=== PATIENT | female | born 1990 | race Caucasian/White ===

== ENCOUNTER 2017-07-30 15:27 | Outpatient (CLI) | payer MEDICAID ==
[2017-07-30 16:16] LABS: APPEARANCE,URINE CLEAR; BILIRUBIN,URINE NEGATIVE (NEGATIVE); COLOR,URINE STRAW; GLUCOSE, URINE NEGATIVE (NEGATIVE); KETONES,URINE NEGATIVE (NEGATIVE); LEUKOCYTE ESTERASE,URINE NEGATIVE (NEGATIVE); NITRITE,URINE NEGATIVE (NEGATIVE); PROTEIN,URINE NEGATIVE (NEGATIVE); URINE SPECIFIC GRAVITY 1.006; UROBILINOGEN,URINE NEGATIVE mg/dL (<2.0)
[2017-07-30 16:18] LABS: EPITHELIALS (WET MOUNT) 3+ EPITHELIALS SEEN; T.VAGINALIS (WET MOUNT) NO TRICHOMONAS SEEN; WBCS (WET MOUNT) FEW WBCS SEEN; YEAST (WET MOUNT) NO YEAST SEEN
[2017-07-30 16:26] LABS: URINE AMPHETAMINES SCREEN NEGATIVE; URINE BARBITURATES SCREEN NEGATIVE; URINE BENZODIAZEPINES SCREEN NEGATIVE; URINE COCAINE SCREEN NEGATIVE; URINE MARIJUANA (THC) SCREEN NEGATIVE; URINE METHADONE SCREEN NEGATIVE; URINE PHENCYCLIDINE SCREEN NEGATIVE
[2017-07-30 17:38] LABS: CHLAM PCR NOT DETECTED (NOT DETECT); GON PCR NOT DETECTED (NOT DETECT)
== END 2017-07-30 17:46 | disposition home or self-care (01) ==
LOC: LC 15:27
PROVIDERS: ATTEND Student in an Organized Health Care Education/Training Program
PROC: 4A1HXCZ Monitoring of Products of Conception, Cardiac Rate, External Approach (ICD-10-PCS; principal; 2017-07-30)
DX: O99.353 Diseases of the nervous system complicating pregnancy, third trimester (principal); Z3A.30 30 weeks gestation of pregnancy
CPT/HCPCS: 80307; 81001; 87081; 87210; 87491; 87591

== ENCOUNTER 2017-08-24 15:37 | Outpatient (CLI) | payer MEDICAID ==
[2017-08-24 16:32] LABS: APPEARANCE,URINE CLEAR; BILIRUBIN,URINE NEGATIVE (NEGATIVE); COLOR,URINE STRAW; GLUCOSE, URINE NEGATIVE (NEGATIVE); KETONES,URINE NEGATIVE (NEGATIVE); LEUKOCYTE ESTERASE,URINE TRACE (NEGATIVE); NITRITE,URINE NEGATIVE (NEGATIVE); PROTEIN,URINE NEGATIVE (NEGATIVE); URINE SPECIFIC GRAVITY 1.005; UROBILINOGEN,URINE NEGATIVE mg/dL (<2.0)
[2017-08-24 16:38] LABS: AMNISURE (ROM) NEGATIVE (NEGATIVE)
[2017-08-24 16:44] LABS: URINE AMPHETAMINES SCREEN NEGATIVE; URINE BARBITURATES SCREEN NEGATIVE; URINE BENZODIAZEPINES SCREEN NEGATIVE; URINE COCAINE SCREEN NEGATIVE; URINE MARIJUANA (THC) SCREEN NEGATIVE; URINE METHADONE SCREEN NEGATIVE; URINE PHENCYCLIDINE SCREEN NEGATIVE
--- NOTE | 2017-08-24 17:09 | Non Stress Test Report ---
Non Stress Test Datetime Report Generated by CPN: 08/24/2017 17:09 DEMOGRAPHIC EGA NST: 34.2 INDICATION Indication for Study: Ordered by Provider MONITORING Monitor Explained: Monitor Explained; Test Explained; Patient Verbalized Understanding Time on Monitor: 08/24/2017 16:00 Time off Monitor: 08/24/2017 16:52 NST Duration: 52 NST INTERVENTIONS NST Interventions: PO Hydration Physician Notified NST: C. Olmos, CNM BABY A: [id number] BABY A Movement : Present Contraction Frequency : irregular FHR Baseline : 140 Accelerations : 15X15 Decelerations : None Variability : Moderate 6-25bpm NST Review: Meets Criteria for Reactive NST NST Review and Verified By : Page Velásquez RNC NST Results: Reactive NST REPORT Report Trigger: Send Report
== END 2017-08-24 17:03 | disposition home or self-care (01) ==
LOC: LC 15:37
PROVIDERS: ATTEND Obstetrics & Gynecology
PROC: 4A1HXCZ Monitoring of Products of Conception, Cardiac Rate, External Approach (ICD-10-PCS; principal; 2017-08-24)
DX: O47.03 False labor before 37 completed weeks of gestation, third trimester (principal); Z3A.34 34 weeks gestation of pregnancy
CPT/HCPCS: 59025; 80307; 81001; 84112

== ENCOUNTER 2017-09-13 16:05 | Outpatient (CLI) | payer MEDICAID ==
[2017-09-13 16:24] LABS: APPEARANCE,URINE SLIGHTLY-CLOUDY; BILIRUBIN,URINE NEGATIVE (NEGATIVE); COLOR,URINE STRAW; GLUCOSE, URINE NEGATIVE (NEGATIVE); KETONES,URINE NEGATIVE (NEGATIVE); LEUKOCYTE ESTERASE,URINE TRACE (NEGATIVE); NITRITE,URINE NEGATIVE (NEGATIVE); PROTEIN,URINE NEGATIVE (NEGATIVE); URINE SPECIFIC GRAVITY 1.004; UROBILINOGEN,URINE NEGATIVE mg/dL (<2.0)
[2017-09-13 16:58] LABS: URINE AMPHETAMINES SCREEN NEGATIVE; URINE BARBITURATES SCREEN NEGATIVE; URINE BENZODIAZEPINES SCREEN NEGATIVE; URINE COCAINE SCREEN NEGATIVE; URINE MARIJUANA (THC) SCREEN NEGATIVE; URINE METHADONE SCREEN NEGATIVE; URINE PHENCYCLIDINE SCREEN NEGATIVE
--- NOTE | 2017-09-13 18:31 | Non Stress Test Report ---
Non Stress Test Datetime Report Generated by CPN: 09/13/2017 18:31 DEMOGRAPHIC EGA NST: 37.1 INDICATION Indication for Study: Ordered by Provider MONITORING Monitor Explained: Monitor Explained; Test Explained; Patient Verbalized Understanding Time on Monitor: 09/13/2017 16:17 Time off Monitor: 09/13/2017 17:00 NST Duration: 43 NST INTERVENTIONS NST Interventions: PO Hydration; Reposition Patient Physician Notified NST: Dr. Rojo BABY A: [id number] BABY A Movement : Present Contraction Frequency : 1-2 FHR Baseline : 130 Accelerations : 15X15 Decelerations : None Variability : Moderate 6-25bpm NST Review: Meets Criteria for Reactive NST NST Review and Verified By : JULIANA YATES Results: Reactive NST REPORT Report Trigger: Send Report
== END 2017-09-13 18:26 | disposition home or self-care (01) ==
LOC: LC 16:05
PROVIDERS: ATTEND Student in an Organized Health Care Education/Training Program
PROC: 4A1HXCZ Monitoring of Products of Conception, Cardiac Rate, External Approach (ICD-10-PCS; principal; 2017-09-13)
DX: O47.1 False labor at or after 37 completed weeks of gestation (principal); Z3A.37 37 weeks gestation of pregnancy
CPT/HCPCS: 59025; 80307; 81005

== ENCOUNTER 2017-09-27 05:45 | Inpatient (IN) | payer MEDICAID ==
[2017-09-27] MEDS ORDERED: RINGERS SOLUTION,LACTATED 1,000 ML IV PRN (06:25)
[2017-09-27] MEDS ORDERED: RINGERS SOLUTION,LACTATED 300 ML IV ONE (06:26)
[2017-09-27] MEDS ORDERED: OXYTOCIN/NORMAL SALINE 20 UNIT/1,000 ML RTUINJ IV PRN ×2 (06:26→11:28)
[2017-09-27] MEDS ORDERED: DEXTROSE 5%-LACTATED RINGERS 1,000 ML IV PRN (06:32)
[2017-09-27 06:48] LABS: ABSOLUTE EOSINOPHILS # (AUTO) 0.1 10^3/uL (0.0-0.6); ABSOLUTE LYMPHOCYTES (AUTO) 2.9 10^3/uL (0.5-4.7); ABSOLUTE MONOCYTES (AUTO) 0.7 10^3/uL (0.1-1.4); ABSOLUTE NEUT (AUTO) 4.3 10^3/uL (1.7-8.2); BASOPHILS % (AUTO) 0.3 % (0-2); EOSINOPHILS % (AUTO) 0.9 % (0-6); HEMATOCRIT 36.9 % (36.0-47.0); HEMOGLOBIN 12.7 g/dL (12.0-15.5); LYMPHOCYTES % (AUTO) 35.9 % (13-45); MEAN CORPUSCULAR HEMOGLOBIN 31.9 pg (27.0-33.4); MEAN CORPUSCULAR HGB CONC 34.4 g/dL (32.0-36.0); MEAN CORPUSCULAR VOLUME 93 fl (80-97); MONOCYTES % (AUTO) 8.9 % (3-13); PLATELET COUNT 206 10^3/uL (150-450); RED BLOOD COUNT 3.98 10^6/uL (3.72-5.28); RED CELL DISTRIBUTION WIDTH 13.2 % (11.5-14.0); TOTAL CELLS COUNTED % (AUTO) 100 %
[2017-09-27] MEDS ORDERED: LORAZEPAM INJ 2 MG/1 ML VIAL ONE (06:49)
[2017-09-27] MEDS ORDERED: MAGNESIUM SULFATE 0 GM/0 ML RTUINJ IV ONE (06:49)
[2017-09-27] MEDS ORDERED: MAGNESIUM SULFATE 0 GM/0 ML RTUPB IV ONE (06:50)
[2017-09-27] MEDS ORDERED: ONDANSETRON HCL INJ/PF 4 MG/2 ML SDV ONE (06:56)
[2017-09-27] MEDS ORDERED: NORMAL SALINE 250 ML IV PRN (07:31)
[2017-09-27 07:33] LABS: APPEARANCE,URINE CLEAR; BILIRUBIN,URINE NEGATIVE (NEGATIVE); COLOR,URINE STRAW; GLUCOSE, URINE NEGATIVE (NEGATIVE); KETONES,URINE NEGATIVE (NEGATIVE); LEUKOCYTE ESTERASE,URINE MODERATE (NEGATIVE); NITRITE,URINE NEGATIVE (NEGATIVE); PROTEIN,URINE NEGATIVE (NEGATIVE); URINE SPECIFIC GRAVITY 1.005; UROBILINOGEN,URINE NEGATIVE mg/dL (<2.0)
[2017-09-27 07:59] LABS: URINE AMPHETAMINES SCREEN NEGATIVE; URINE BARBITURATES SCREEN NEGATIVE; URINE BENZODIAZEPINES SCREEN NEGATIVE; URINE COCAINE SCREEN NEGATIVE; URINE MARIJUANA (THC) SCREEN NEGATIVE; URINE METHADONE SCREEN NEGATIVE; URINE PHENCYCLIDINE SCREEN NEGATIVE
[2017-09-27] MEDS ORDERED: MAG HYDROX/AL HYDROX/SIMETH SUSP 30 ML UDCUP ONE (08:09)
[2017-09-27] MEDS ORDERED: OXYTOCIN/NORMAL SALINE 0 UNIT/0 ML RTUINJ ONE (08:44)
[2017-09-27] MEDS ORDERED: OXYTOCIN/NORMAL SALINE 20 UNIT/1,000 ML RTUINJ ONE (08:44)
[2017-09-27] MEDS ORDERED: LIDOCAINE 1% INJ-PF (10 MG/ML) 30 ML SDV ONE (08:44)
[2017-09-27] MEDS ORDERED: MISOPROSTOL 0.2 MG TABLET ONE (08:44)
[2017-09-27] MEDS ORDERED: FENTANYL/BUPIVACAINE/NS/PF 300 MCG/150 ML RTUINJ EPI ONE (09:45)
[2017-09-27] MEDS ORDERED: EPHEDRINE SULFATE INJ 50 MG/1 ML AMPULE ONE (09:45)
[2017-09-27] MEDS ORDERED: BUPIVACAINE HCL 0.25 % INJ/PF (2.5 MG/1 ML) 30 ML VIAL ONE (09:46)
[2017-09-27] MEDS ORDERED: ACETAMINOPHEN WITH CODEINE #3 TABLET PO PRN ×2 (11:28)
[2017-09-27] MEDS ORDERED: MEASLES,MUMPS&RUBELLA VACC/PF 0.5 ML VIAL SUBCUT PRN (11:28)
[2017-09-27] MEDS ORDERED: PROMETHAZINE HCL 25 MG TABLET PO PRN (11:28)
[2017-09-27] MEDS ORDERED: GLYCERIN/WITCH HAZEL LEAF 1 EACH MED..PAD TP PRN (11:28)
[2017-09-27] MEDS ORDERED: NA PHOS,M-B/NA PHOS,DI-BA (ADULT) 133 ML ENEMA PR PRN (11:28)
[2017-09-27] MEDS ORDERED: DIPH/PERTUSS(ACELL)/TETANUS VAC/PF 0.5 ML SYR (>=10YO) IM PRN (11:28)
[2017-09-27] MEDS ORDERED: BENZOCAINE/MENTHOL AEROSOL SPRAY 56 ML TOP PRN (11:28)
[2017-09-27] MEDS ORDERED: MAGNESIUM HYDROXIDE SUSP 30 ML UDCUP PO PRN (11:28)
[2017-09-27] MEDS ORDERED: ACETAMINOPHEN 650 MG SUPP.RECT PR PRN (11:28)
[2017-09-27] MEDS ORDERED: PSEUDOEPHEDRINE HCL 30 MG TABLET PO PRN (11:28)
[2017-09-27] MEDS ORDERED: PROMETHAZINE HCL INJ 25 MG/1 ML VIAL IV PRN (11:28)
[2017-09-27] MEDS ORDERED: PROMETHAZINE HCL 25 MG SUPP.RECT PR PRN (11:28)
[2017-09-27] MEDS ORDERED: DIBUCAINE 1% OINTMENT 28 GM TP PRN (11:28)
[2017-09-27] MEDS ORDERED: DIPHENHYDRAMINE HCL 25 MG CAPSULE PO PRN (11:28)
--- NOTE | 2017-09-27 14:34 | Delivery Summary ---
Del Sum A-C Datetime Report Generated by CPN: 09/27/2017 14:34 DELIVERY PERSONNEL DELIVERY PERSONNEL: [id number] Delivery Doctor:: Isabel Gil CNM/ DR ZHONG Labor and Delivery Nurse:: Bhargavi Franklin RNcustomer account administrator Nurse:: María GIPSON RN Nursery Nurse:: [place] GIBBS Publishing Systems Analyst/DOUGHNUT ICER: Kenya Valenzuela CNA II Additional Personnel: : Delphine Anderson RN MATERNAL INFORMATION Delivery Anesthesia: Epidural Medications After Delivery: Pitocin Bolus-Please Comment; Pitocin Drip 20 Units/1000ml NSS; Other-Please Comment Meds After Delivery Comment: CYTOTEC 1000MCG [place] Maternal Complications: Precipitous Labor (<3hrs); Other Complication Details: SEIZURE THIS AM- H/O EPILEPSY Provider Comments: viable female from OA to JUAN over intact perineum, placed on mothers abd, cord clamped and cut after 2 minutes, cut by FOB, spont delivinery of grossly nl intact placenta, 3 VC, Dr. Zhong in attendance for delivery, uterine atony, Massage, IV Pitocin, Cytotec 1000 mcg via rectum Baby and mom remain in recovery in stable condition [facility] LABOR SUMMARY EDC: 10/03/2017 00:00 No. Babies in Womb: 0 Attempted: Yes Labor Anesthesia: Epidural LABOR INFORMATION Reason for Induction: Maternal Diabetes Onset of Labor: 09/27/2017 08:45 Complete Dilatation: 09/27/2017 10:55 Other Ripening Agents: n/a Oxytocin: Induction Group B Beta Strep: Negative Antibiotics # of Doses: 0 Antibiotics Time of Last Dose: n/a Name of Antibiotic Given: n/a Steroids Given: None Reason Steroids Not Administered: Not Applicable Other Reason Not Administered: n/a MEMBRANES Membranes Rupture Method: Artificial Rupture of Membranes: 09/27/2017 07:38 Length of Rupture (hr): 3.65 Amniotic Fluid Color: Bloody Amniotic Fluid Amount: Small Amniotic Fluid Odor: Normal STAGES OF LABOR Stage 1 hr: 2 Stage 1 min: 10 Stage 2 hr: 0 Stage 2 min: 22 Stage 3 hr: 0 Stage 3 min: 4 Total Time in Labor hr: 2 Total Time in Labor min: 36 VAGINAL DELIVERY Episiotomy: None Laceration #1: None Laceration Extension #1: N/A Laceration Repair: Not Applicable Sponge Count Correct: N/A Sharps Count Correct: N/A BABY A INFORMATION Infant Delivery Date/Time: 09/27/2017 11:17 Method of Delivery: Vaginal Born in Route : No : Successful Forceps: N/A Vacuum Extraction: N/A Shoulder Dystocia : No PRESENTATION/POSITION BABY A Presentation: Cephalic Cephalic Presentation: Vertex Vertex Position: Left Occipital Anterior Breech Presentation: N/A PLACENTA INFORMATION BABY A Placenta Delivery Time : 09/27/2017 11:21 Placenta Method of Delivery: Spontaneous Placenta Status: Delivered SCORES BABY A Heart Rate 1 min: >100 bpm Resp Effort 1 min: Good Cry Reflex Irritability 1 min: Cough or Sneeze or Pulls Away Muscle Tone 1 min: Active Motion Color 1 min: Blue/Pale Resuscitation Effort 1 min: Tactile Stimulation SCORE 1 MIN: 8 Heart Rate 5 min: >100 bpm Resp Effort 5 min: Good Cry Reflex Irritability 5 min: Cough or Sneeze or Pulls Away Muscle Tone 5 min: Active Motion Color 5 min: Body Manuel Garcia Ii, Extremities Blue Resuscitation Effort 5 min: Tactile Stimulation SCORE 5 MIN: 9 INFANT INFORMATION BABY A Gestational Age at Delivery: 39.1 Gestational Status: Full Term- 39- 40.6 Weeks Outcome : Liveborn Infant Condition : Stable Sex: Female IDENTIFICATION BABY A Infant Verification Date/Time: 09/27/2017 11:40 ID Band Number: [id number] Mother's Name Verified: Yes RN Verifying : Bhargavi Franklin, RN, Crystal Felisa, RN WEIGHT/LENGTH BABY A Infant Birthweight (gm): 3140 Weight (lb): 6 Infant Weight (oz): 15 Infant Length (in): 20.00 Length (cm): 50.80 CORD INFORMATION BABY A No. Cord Vessels: 3 Nuchal Cord : N/A Cord Blood Taken: Yes-For Eval (Mom's Blood Type - or O+) Suction: None ASSESSMENT BABY A Complications: Other Complications- Other: TERMINAL MECONIUUM Physical Findings at Delivery: Within Normal Limits Respirations: Appears Normal Skin to Skin: Yes Skin to Skin Time (min): 60 Business Systems Lead/ALS Called : No Transferred To: Remains with Mother BABY B INFORMATION : N/A
[2017-09-27] MEDS: IBUPROFEN 800 MG TABLET PO SCH ×2 (15:00→21:39)
[2017-09-27] MEDS: DOCUSATE SODIUM 100 MG CAPSULE PO SCH (18:10)
[2017-09-27] MEDS: FERROUS SULFATE 325 MG TABLET PO SCH (18:10)
[2017-09-27] MEDS: FAMOTIDINE 20 MG TABLET PO SCH (21:40)
[2017-09-28] MEDS: IBUPROFEN 800 MG TABLET PO SCH ×3 (06:23→21:38)
[2017-09-28 06:29] LABS: HEMATOCRIT 37.1 % (36.0-47.0); HEMOGLOBIN 12.7 g/dL (12.0-15.5); MEAN CORPUSCULAR HEMOGLOBIN 31.8 pg (27.0-33.4); MEAN CORPUSCULAR HGB CONC 34.3 g/dL (32.0-36.0); MEAN CORPUSCULAR VOLUME 93 fl (80-97); PLATELET COUNT 208 10^3/uL (150-450); RED CELL DISTRIBUTION WIDTH 13.8 % (11.5-14.0); WHITE BLOOD COUNT 12.6 10^3/uL (4.0-10.5)
[2017-09-28] MEDS ORDERED: PRENATAL VITAMIN W DHA CAPSULE PO SCH (10:00)
--- NOTE | 2017-09-28 10:05 | PDOC PROGRESS REPORT ---
Subjective-OB Progress Note for:: 09/28/17 Subjective: 26yo G2 now P2 s/p ppd1. Ambulating, voiding and without difficulty. Denies seizures since delivery. Physical Exam (OB) Vital Signs: Temp Pulse Resp BP Pulse Ox 98.0 F 61 17 112/68 100 09/28/17 08:11 09/28/17 08:11 09/28/17 08:11 09/28/17 08:11 09/28/17 08:11 Intake & Output 09/27/17 09/28/17 09/29/17 06:59 06:59 06:59 Intake Total 500 Balance 500 Weight 62.5 kg - General General Appearance: Appears well In distress: None - PIH/Pre-Eclampsia DTR's: 1 + Clonus: Negative Headache: Absent Epigastric Pain: No Visual Changes: No - Episiotomy/Laceration Site Condition: N/A - Lochia Lochia Amount: Small 10-25 ml Lochia Color: Rubra/Red - Abdomen Description: Soft Hernia Present: No Fundal Description: Firm, Midline Fundal Height: u/u - u/2 - Respiratory Respiratory Status: No respiratory distress - Extremities Upper extremity: Normal inspection Lower extremities: Normal inspection - Neurological Cognition: Normal Orientation: AAOx4 Speech: Normal - Psychological Associated symptoms: Normal affect, Normal mood - bonding well with baby Objective-Diagnostic Laboratory: 09/28/17 06:21 09/28/17 06:21 WBC 12.6 H RBC 4.00 Hgb 12.7 Hct 37.1 MCV 93 MCH 31.8 MCHC 34.3 RDW 13.8 Plt Count 208 Assessment and Plan(PN) - Assessment and Plan (1) Seizures, generalized convulsive Is this a current diagnosis for this admission?: Yes Plan: continue seizure precautions, follow up with neurologist as scheduled upon discharge (2) Vaginal after , delivered, current hospitalization Is this a current diagnosis for this admission?: Yes Plan: routine pp care - Time Spent with Patient Time with patient: 15-25 minutes Medications reviewed and adjusted accordingly: Yes - Disposition Anticipated Discharge: Home Within: within 24 hours
[2017-09-28] MEDS: DOCUSATE SODIUM 100 MG CAPSULE PO SCH ×2 (10:18→17:27)
[2017-09-28] MEDS: FERROUS SULFATE 325 MG TABLET PO SCH ×2 (10:18→17:27)
[2017-09-28] MEDS: SENNOSIDES/DOCUSATE 8.6-50 MG 1 EACH TABLET PO SCH (10:18)
[2017-09-28] MEDS: FAMOTIDINE 20 MG TABLET PO SCH ×2 (10:19→21:38)
[2017-09-29] MEDS: IBUPROFEN 800 MG TABLET PO SCH (05:43)
--- NOTE | 2017-09-29 08:30 | PDOC DISCHARGE SUMMARY ---
Final Diagnosis Discharge Date: 09/29/17 - Final Diagnosis (1) Seizures, generalized convulsive Is this a current diagnosis for this admission?: Yes (2) Vaginal after , delivered, current hospitalization Is this a current diagnosis for this admission?: Yes Discharge Data - Discharge Medication Prescriptions: Docusate Sodium [Colace 100 mg Capsule] 100 mg PO BID #60 capsule Ibuprofen [Motrin 800 mg Tablet] 800 mg PO Q8 #60 tablet Home Medications: Vit Calc,Iron,Folic [ Vitamins] 1 tab PO DAILY 07/30/17 Docusate Sodium [Colace 100 mg Capsule] 100 mg PO BID #60 capsule 09/29/17 Ibuprofen [Motrin 800 mg Tablet] 800 mg PO Q8 #60 tablet 09/29/17 Gestational Age: 39.1 Reason(s) for Admission: Induction of Labor Procedures: NST Intrapartum Procedure(s): Spontaneous Vaginal Delivery - Data Baby 1 Female at 1 minute: 8 at 5 minutes: 9 Weight: 3140 kg Home with Mother: Yes Complications: No - Diagnosis Test Laboratory: Temp Pulse Resp BP Pulse Ox 98.1 F 56 L 16 119/70 100 09/28/17 20:23 09/28/17 22:00 09/28/17 20:23 09/28/17 20:23 09/28/17 20:23 09/27/17 09/27/17 09/28/17 06:30 06:36 06:21 RBC 3.98 4.00 Hgb 12.7 12.7 Hct 36.9 37.1 Urine Opiates Screen NEGATIVE - Discharge information/Instructions Discharge Activity: Activity As Tolerated, Pelvic Rest, No tub bath Discharge Diet: Regular Disposition: HOME, SELF-CARE Follow up with: [facility] in: 4, Weeks
[2017-09-29 09:35] VITALS: BP 119/70
[2017-09-29] MEDS: FERROUS SULFATE 325 MG TABLET PO SCH (09:56)
[2017-09-29] MEDS: SENNOSIDES/DOCUSATE 8.6-50 MG 1 EACH TABLET PO SCH (09:57)
[2017-09-29] MEDS: FAMOTIDINE 20 MG TABLET PO SCH (09:57)
[2017-09-29] MEDS: DOCUSATE SODIUM 100 MG CAPSULE PO SCH (09:57)
== END 2017-09-29 11:15 | disposition home or self-care (01) | DRG 775 ==
LOC: LR 06:18 → 2S 14:07
PROVIDERS: ADMIT Obstetrics & Gynecology Gynecology; ATTEND Obstetrics & Gynecology Gynecology
PROC: 10D07Z6 Extraction of Products of Conception, Vacuum, Via Natural or Artificial Opening (ICD-10-PCS; principal; 2017-09-27)
PROC: 3E033VJ Introduction of Other Hormone into Peripheral Vein, Percutaneous Approach (ICD-10-PCS; 2017-09-27)
PROC: 10907ZC Drainage of Amniotic Fluid, Therapeutic from Products of Conception, Via Natural or Artificial Opening (ICD-10-PCS; 2017-09-27)
PROC: 4A1HXCZ Monitoring of Products of Conception, Cardiac Rate, External Approach (ICD-10-PCS; 2017-09-27)
PROC: 3E0234Z Introduction of Serum, Toxoid and Vaccine into Muscle, Percutaneous Approach (ICD-10-PCS; 2017-09-27)
DX: O34.211 Maternal care for low transverse scar from previous cesarean delivery (principal); O99.354 Diseases of the nervous system complicating childbirth; O24.429 Gestational diabetes mellitus in childbirth, unspecified control; G40.409 Other generalized epilepsy and epileptic syndromes, not intractable, without status epilepticus; O62.3 Precipitate labor; O77.0 Labor and delivery complicated by meconium in amniotic fluid; Z23 Encounter for immunization; Z3A.39 39 weeks gestation of pregnancy; Z37.0 Single live birth
CPT/HCPCS: 36415; 80307; 81005; 82962; 85025; 85027; 86592; 86850; 86900; 86901; 86920; 90715; J2060; J2405; J2590; J3010; J3475; J3490

== ENCOUNTER → 2018-05-03 | Outpatient (CLI) | payer MEDICAID ==
--- NOTE | 2018-05-03 14:16 | RADIOLOGY REPORT (SQ) ---
EXAM DESCRIPTION: SHOULDER RIGHT 2 OR MORE VIEWS COMPLETED DATE/TIME: 05/03/2018 2:08 pm REASON FOR STUDY: RIB PAIN ON RT SIDE; ACUTE PAIN OF RT SHOULDER M25.511 PAIN IN RIGHT SHOULDER R07 .81 PLEURODYNIA COMPARISON: None. NUMBER OF VIEWS: Three views. TECHNIQUE: Internal rotation, external rotation, and Y view images acquired of the right shoulder. LIMITATIONS: None. FINDINGS: MINERALIZATION: Normal. BONES: No acute fracture or dislocation. No worrisome bone lesions. JOINTS: No dislocation. VISUALIZED LUNGS AND RIBS: No pneumothorax. No rib fracture. SOFT TISSUES: No radiopaque foreign body. OTHER: No other significant finding. IMPRESSION: 1. NEGATIVE STUDY OF THE RIGHT SHOULDER. TECHNICAL DOCUMENTATION: JOB ID: [id number] [employer]- All Rights Reserved Reading location - IP/workstation name: [email or web address]
--- NOTE | 2018-05-03 14:21 | RADIOLOGY REPORT (SQ) ---
EXAM DESCRIPTION: RIBS RIGHT W/PA CHEST COMPLETED DATE/TIME: 05/03/2018 2:08 pm REASON FOR STUDY: RIB PAIN ON RT SIDE; ACUTE PAIN OF RT SHOULDER M25.511 PAIN IN RIGHT SHOULDER R07 .81 PLEURODYNIA COMPARISON: Plain films of the chest dated 02/19/2012 TECHNIQUE: Frontal view of the chest and additional views of the right ribs acquired. NUMBER OF VIEWS: Five view. LIMITATIONS: None. FINDINGS: FRONTAL CXR: No pneumothorax. No pleural effusion. No atelectasis or infiltrates. Inter roly placement of neurostimulating unit since the prior study on the left. RIBS: No acute displaced rib fractures. No lytic or blastic bony lesions. OTHER: No other significant finding. IMPRESSION: 1. NO PNEUMOTHORAX. 2. NO DISPLACED RIB FRACTURES. COMMENT: SITE OF TRAUMA/COMPLAINT MARKED/STAMP COMPLETED: YES. TECHNICAL DOCUMENTATION: JOB ID: [id number] 2016 [employer]- All Rights Reserved Reading location - IP/workstation name: [email or web address]
== END ==
LOC: OD 13:36
PROVIDERS: ATTEND Nurse Practitioner Acute Care
DX: M25.511 Pain in right shoulder (principal); R07.81 Pleurodynia

== ENCOUNTER 2020-01-10 17:39 | Outpatient (CLI) | payer MEDICAID ==
[2020-01-10 18:18] LABS: APPEARANCE,URINE CLEAR; BILIRUBIN,URINE NEGATIVE (NEGATIVE); COLOR,URINE YELLOW; GLUCOSE, URINE NEGATIVE (NEGATIVE); KETONES,URINE NEGATIVE (NEGATIVE); LEUKOCYTE ESTERASE,URINE TRACE (NEGATIVE); NITRITE,URINE NEGATIVE (NEGATIVE); PROTEIN,URINE NEGATIVE (NEGATIVE); URINE SPECIFIC GRAVITY 1.008; UROBILINOGEN,URINE NEGATIVE mg/dL (<2.0)
[2020-01-10 18:32] LABS: URINE AMPHETAMINES SCREEN NEGATIVE; URINE BARBITURATES SCREEN NEGATIVE; URINE BENZODIAZEPINES SCREEN NEGATIVE; URINE COCAINE SCREEN NEGATIVE; URINE MARIJUANA (THC) SCREEN NEGATIVE; URINE METHADONE SCREEN NEGATIVE; URINE PHENCYCLIDINE SCREEN NEGATIVE
[2020-01-10] MEDS ORDERED: RINGERS SOLUTION,LACTATED 1,000 ML IV PRN (19:25)
[2020-01-10] MEDS ORDERED: HYDROXYZINE PAMOATE 50 MG CAPSULE PO ONE (19:25)
[2020-01-10] MEDS ORDERED: HYDROXYZINE PAMOATE 50 MG CAPSULE ONE (19:27)
--- NOTE | 2020-01-10 21:26 | Non Stress Test Report ---
Non Stress Test Datetime Report Generated by CPN: 01/10/2020 21:26 DEMOGRAPHIC Test Number: 1 EGA NST: 35.3 INDICATION Indication for Study (NST) Other: LC VITAL SIGNS Temperature - NST: 98.3 Pulse - NST: 65 RESP - NST: 18 NBPSYS NST: 123 NBPDIA NST: 60 MONITORING Monitor Explained: Monitor Explained; Test Explained; Patient Verbalized Understanding Time on Monitor: 01/10/2020 18:14 Time off Monitor: 01/10/2020 21:03 NST Duration: 169 NST INTERVENTIONS NST Interventions: PO Hydration; IV Fluids; Reposition Patient Physician Notified NST: Malik MD BABY A: [id number] BABY A Movement : Present Contraction Frequency : Irregular with Irritabilty FHR Baseline : 135 Accelerations : 15X15 Decelerations : None Variability : Moderate 6-25bpm NST Review: Meets Criteria for Reactive NST NST Review and Verified By : Courtney Renee RN NST Results: Reactive NST REPORT Report Trigger: Send Report
== END 2020-01-10 21:14 | disposition home or self-care (01) ==
LOC: LC 17:39
PROVIDERS: ATTEND Obstetrics & Gynecology
DX: O47.03 False labor before 37 completed weeks of gestation, third trimester (principal); Z3A.35 35 weeks gestation of pregnancy; Z91.040 Latex allergy status
CPT/HCPCS: 59025; 81001; 80307; 84112; J3490

== ENCOUNTER 2020-01-22 14:47 | Outpatient (CLI) | payer MEDICAID ==
[2020-01-22 15:35] LABS: APPEARANCE,URINE SLIGHTLY-CLOUDY; BILIRUBIN,URINE NEGATIVE (NEGATIVE); COLOR,URINE YELLOW; GLUCOSE, URINE NEGATIVE (NEGATIVE); KETONES,URINE NEGATIVE (NEGATIVE); LEUKOCYTE ESTERASE,URINE SMALL (NEGATIVE); NITRITE,URINE NEGATIVE (NEGATIVE); PROTEIN,URINE NEGATIVE (NEGATIVE); URINE SPECIFIC GRAVITY 1.005; UROBILINOGEN,URINE NEGATIVE mg/dL (<2.0)
[2020-01-22 15:56] LABS: URINE AMPHETAMINES SCREEN NEGATIVE; URINE BARBITURATES SCREEN NEGATIVE; URINE BENZODIAZEPINES SCREEN NEGATIVE; URINE COCAINE SCREEN NEGATIVE; URINE MARIJUANA (THC) SCREEN NEGATIVE; URINE METHADONE SCREEN NEGATIVE; URINE PHENCYCLIDINE SCREEN NEGATIVE
--- NOTE | 2020-01-22 16:02 | Non Stress Test Report ---
Non Stress Test Datetime Report Generated by CPN: 01/22/2020 16:01 DEMOGRAPHIC Test Number: 2 EGA NST: 37.1 VITAL SIGNS Temperature - NST: 98.3 Pulse - NST: 91 RESP - NST: 18 NBPSYS NST: 99 NBPDIA NST: 58 URINE RESULTS Urine Protein, NST: Negative Urine Ketones - NST: Negative Urine Glucose - NST: Negative Urine Blood - NST: Negative MONITORING Monitor Explained: Monitor Explained; Test Explained; Patient Verbalized Understanding Time on Monitor: 01/22/2020 15:00 NST INTERVENTIONS NST Interventions: PO Hydration Physician Notified NST: Dr. Hannah BABY A: [id number] BABY A Movement : Present Contraction Frequency : irritability Accelerations : 15X15 Decelerations : None Variability : Moderate 6-25bpm NST Review: Meets Criteria for Reactive NST NST Review and Verified By : Hair Bullock RN NST Results: Reactive NST REPORT Report Trigger: Send Report
== END 2020-01-22 15:57 | disposition home or self-care (01) ==
LOC: LC 14:47
PROVIDERS: ATTEND Obstetrics & Gynecology Gynecology
DX: O36.8130 Decreased fetal movements, third trimester, not applicable or unspecified (principal); Z3A.37 37 weeks gestation of pregnancy; Z91.040 Latex allergy status
CPT/HCPCS: 59025; 80307; 81005

== ENCOUNTER 2020-01-25 11:40 | Outpatient (CLI) | payer MEDICAID ==
--- NOTE | 2020-01-25 14:58 | RADIOLOGY REPORT (SQ) ---
EXAM DESCRIPTION: U/S PROFILE W/O STRESS IMAGES COMPLETED DATE/TIME: 01/25/2020 2:00 pm REASON FOR STUDY: BPP at 37w for NR NST COMPARISON: None. TECHNIQUE: Limited samson-scale realtime and static images of the fetus to measure specified parameter s. LIMITATIONS: None. FINDINGS: HEART RATE: 113 beats per minute. JANEY: 16.4 cm. MVP: 8.3 x 4.2 cm. BREATHING MOVEMENT: 2 points. MOVEMENT: 2 points. POSTURE AND TONE: 2 points. QUALITATIVE JANEY: 2 points. OTHER: Anterior placenta. Cephalic presentation. IMPRESSION: BIOPHYSICAL PROFILE: 12/22. Trimester of : Third - 28 weeks to delivery COMMENT: BREATHING MOVEMENTS: 2 POINTS: PRESENT 0 POINTS: ABSENT MOTION: 2 POINTS: PRESENT 0 POINTS: ABSENT TONE: 2 POINTS: PRESENT 0 POINTS: ABSENT AMNIOTIC FLUID VOLUME: 2 POINTS: LARGEST POCKET GREATER THAN 2 CM DEPTH. 0 POINTS: NO POCKET OF 2 CM. TECHNICAL DOCUMENTATION: JOB ID: [id number] 2010 [employer]- All Rights Reserved Reading location - IP/workstation name: [email or web address]
== END 2020-01-25 15:55 | disposition home or self-care (01) ==
LOC: LC 11:40
PROVIDERS: ATTEND Obstetrics & Gynecology Gynecology
DX: Z34.93 Encounter for supervision of normal pregnancy, unspecified, third trimester (principal)
CPT/HCPCS: 76819

== ENCOUNTER 2020-01-31 20:50 | Outpatient (CLI) | payer MEDICAID ==
[2020-01-31 22:17] LABS: APPEARANCE,URINE SLIGHTLY-CLOUDY; BILIRUBIN,URINE NEGATIVE (NEGATIVE); COLOR,URINE YELLOW; GLUCOSE, URINE NEGATIVE (NEGATIVE); KETONES,URINE NEGATIVE (NEGATIVE); LEUKOCYTE ESTERASE,URINE LARGE (NEGATIVE); NITRITE,URINE NEGATIVE (NEGATIVE); PROTEIN,URINE NEGATIVE (NEGATIVE); URINE SPECIFIC GRAVITY 1.008; UROBILINOGEN,URINE NEGATIVE mg/dL (<2.0)
[2020-01-31 22:57] LABS: URINE AMPHETAMINES SCREEN NEGATIVE; URINE BARBITURATES SCREEN NEGATIVE; URINE BENZODIAZEPINES SCREEN NEGATIVE; URINE COCAINE SCREEN NEGATIVE; URINE MARIJUANA (THC) SCREEN NEGATIVE; URINE METHADONE SCREEN NEGATIVE; URINE PHENCYCLIDINE SCREEN NEGATIVE
--- NOTE | 2020-02-01 01:13 | Non Stress Test Report ---
Non Stress Test Datetime Report Generated by CPN: 02/01/2020 01:13 DEMOGRAPHIC Test Number: 3 EGA NST: 38.3 EGA NST: 37.4 INDICATION Indication for Study (NST) Other: labor check Indication for Study (NST) Other: Repeat NST NR in office VITAL SIGNS Temperature - NST: 97.8 Temperature - NST: 98.7 Pulse - NST: 65 Pulse - NST: 67 RESP - NST: 16 RESP - NST: 16 NBPSYS NST: 106 NBPSYS NST: 105 NBPDIA NST: 54 NBPDIA NST: 64 MONITORING Monitor Explained: Monitor Explained; Test Explained; Patient Verbalized Understanding Monitor Explained: Monitor Explained; Test Explained; Patient Verbalized Understanding Time on Monitor: 01/31/2020 23:50 Time on Monitor: 01/25/2020 12:09 Time off Monitor: 02/01/2020 00:22 NST Duration: 32 NST INTERVENTIONS NST Interventions: PO Hydration; Reposition Patient NST Interventions: PO Hydration; Reposition Patient Physician Notified NST: Dr. Mullins Physician Notified NST: Dr. Mullins BABY A: [id number] BABY A Movement : Present Contraction Frequency : none FHR Baseline : 120 Accelerations : 15X15 Decelerations : None Variability : Moderate 6-25bpm NST Review: Meets Criteria for Reactive NST NST Review: Meets Criteria for Reactive NST NST Review and Verified By : Gregory Huang RN NST Results: Reactive NST REPORT Report Trigger: Send Report
== END 2020-02-01 00:30 | disposition home or self-care (01) ==
LOC: LC 20:50
PROVIDERS: ATTEND Obstetrics & Gynecology
DX: O47.1 False labor at or after 37 completed weeks of gestation (principal); Z3A.38 38 weeks gestation of pregnancy; Z91.040 Latex allergy status
CPT/HCPCS: 59025; 80307; 81005; 87086

== ENCOUNTER 2020-02-08 14:48 | Outpatient (CLI) | payer MEDICAID ==
[2020-02-08 15:33] LABS: APPEARANCE,URINE CLEAR; BILIRUBIN,URINE NEGATIVE (NEGATIVE); COLOR,URINE STRAW; GLUCOSE, URINE NEGATIVE (NEGATIVE); KETONES,URINE NEGATIVE (NEGATIVE); LEUKOCYTE ESTERASE,URINE SMALL (NEGATIVE); NITRITE,URINE NEGATIVE (NEGATIVE); PROTEIN,URINE NEGATIVE (NEGATIVE); URINE SPECIFIC GRAVITY 1.002; UROBILINOGEN,URINE NEGATIVE mg/dL (<2.0)
[2020-02-08 15:50] LABS: URINE AMPHETAMINES SCREEN NEGATIVE; URINE BARBITURATES SCREEN NEGATIVE; URINE BENZODIAZEPINES SCREEN NEGATIVE; URINE COCAINE SCREEN NEGATIVE; URINE MARIJUANA (THC) SCREEN NEGATIVE; URINE METHADONE SCREEN NEGATIVE; URINE PHENCYCLIDINE SCREEN NEGATIVE
[2020-02-08] MEDS ORDERED: HYDROXYZINE PAMOATE 50 MG CAPSULE PO ONE (18:44)
[2020-02-08] MEDS ORDERED: HYDROXYZINE PAMOATE 50 MG CAPSULE ONE (18:46)
--- NOTE | 2020-02-08 19:00 | Non Stress Test Report ---
Non Stress Test Datetime Report Generated by CPN: 02/08/2020 18:59 DEMOGRAPHIC Test Number: 1 Test Number: 5 EGA NST: 39.4 EGA NST: 39.4 INDICATION Indication for Study (NST) Other: LC Indication for Study (NST) Other: Labor Check VITAL SIGNS Temperature - NST: 97.8 Temperature - NST: 97.8 Pulse - NST: 71 Pulse - NST: 66 RESP - NST: 16 RESP - NST: 16 NBPSYS NST: 118 NBPSYS NST: 111 NBPDIA NST: 72 NBPDIA NST: 66 MONITORING Monitor Explained: Monitor Explained; Test Explained; Patient Verbalized Understanding Monitor Explained: Monitor Explained; Test Explained; Patient Verbalized Understanding Time on Monitor: 02/08/2020 16:55 Time on Monitor: 02/08/2020 15:03 Time off Monitor: 02/08/2020 17:20 Time off Monitor: 02/08/2020 18:37 NST Duration: 25 NST Duration: 214 NST INTERVENTIONS NST Interventions: PO Hydration; Reposition Patient NST Interventions: PO Hydration; Reposition Patient Physician Notified NST: Susanna MARTINEZ Physician Notified NST: Dr Mullins BABY A: [id number] BABY A Movement : Present Contraction Frequency : 2-5 FHR Baseline : 120 Accelerations : 15X15 Decelerations : None Variability : Moderate 6-25bpm NST Review: Meets Criteria for Reactive NST NST Review and Verified By : JULIANA Loco NST Results: Reactive NST REPORT Report Trigger: Send Report
== END 2020-02-08 19:06 | disposition home or self-care (01) ==
LOC: LC 14:48
PROVIDERS: ATTEND Obstetrics & Gynecology
DX: O47.1 False labor at or after 37 completed weeks of gestation (principal); Z3A.39 39 weeks gestation of pregnancy; Z91.040 Latex allergy status
CPT/HCPCS: 59025; 81005; 80307; J3490

== ENCOUNTER 2020-02-13 06:44 | Inpatient (IN) | payer MEDICAID ==
[2020-02-13] MEDS ORDERED: OXYTOCIN/0.9 % SODIUM CHLORIDE 30 UNIT/500 ML RTUINJ ONE (07:07)
[2020-02-13] MEDS ORDERED: MISOPROSTOL 0.2 MG TABLET ONE (07:07)
[2020-02-13] MEDS ORDERED: NA PHOS,M-B/NA PHOS,DI-BA (ADULT) 133 ML ENEMA PR PRN (07:29)
[2020-02-13] MEDS ORDERED: DIBUCAINE 1% OINTMENT 28 GM TP PRN (07:29)
[2020-02-13] MEDS ORDERED: BENZOCAINE/MENTHOL AEROSOL SPRAY 56 ML TOP PRN (07:29)
[2020-02-13] MEDS ORDERED: MEASLES,MUMPS&RUBELLA VACC/PF 0.5 ML VIAL SUBCUT PRN (07:29)
[2020-02-13] MEDS ORDERED: ACETAMINOPHEN 650 MG SUPP.RECT PR PRN (07:29)
[2020-02-13] MEDS ORDERED: PROMETHAZINE HCL 25 MG SUPP.RECT PR PRN (07:29)
[2020-02-13] MEDS ORDERED: DIPH/PERTUSS(ACELL)/TETANUS VAC/PF 0.5 ML SYR (>=10YO) IM PRN (07:29)
[2020-02-13] MEDS ORDERED: PSEUDOEPHEDRINE HCL 30 MG TABLET PO PRN (07:29)
[2020-02-13] MEDS ORDERED: PROMETHAZINE HCL 25 MG TABLET PO PRN (07:29)
[2020-02-13] MEDS ORDERED: MAGNESIUM HYDROXIDE SUSP 30 ML UDCUP PO PRN (07:29)
[2020-02-13] MEDS ORDERED: DIPHENHYDRAMINE HCL 25 MG CAPSULE PO PRN (07:29)
[2020-02-13] MEDS ORDERED: ACETAMINOPHEN WITH CODEINE #3 TABLET PO PRN ×2 (07:29)
[2020-02-13] MEDS ORDERED: OXYTOCIN/0.9 % SODIUM CHLORIDE 30 UNIT/500 ML RTUINJ IV PRN (07:29)
[2020-02-13] MEDS ORDERED: PROMETHAZINE HCL INJ 25 MG/1 ML VIAL IV PRN (07:29)
[2020-02-13] MEDS ORDERED: ZOLPIDEM TARTRATE 5 MG TABLET PO PRN (07:29)
[2020-02-13] MEDS ORDERED: GLYCERIN/WITCH HAZEL LEAF 1 EACH MED..WIPE TP PRN (07:29)
--- NOTE | 2020-02-13 07:35 | Admission Physical ---
Datetime Report Generated by CPN: 02/13/2020 07:34 CURRENT ADMISSION Chief Complaint: Other Chief Complaint Other: delivered at home Admit Plan: Observation/Evaluation ALLERGIES Medication Allergies: No Medication Allergies: latex/[place]/LATEX (02/08/2020) Latex: Latex Allergies OBSTETRICAL HISTORY EDC: 02/11/2020 00:00 : 3 Para: 2 Term: 2 : 0 SAB: 0 IAB: 0 Ectopic: 0 Livin Cesareans: 1 VBACs: 1 Multiple Births: 0 Gestational Diabetes: No Rh Sensitization: No Incompetent Cervix: No HOLLY: No Infertility: No ART Treatment: No Uterine Anomaly: No IUGR: No Hx Previous C/S: No Macrosomia: No Hx Loss/Stillborn: No PIH: No Hx : No Placenta Previa/Abruption: No Depression/PP Depression: No PTL/PROM: No Post Hemorrhage: No MEDICAL HISTORY Diabetes: No Blood Transfusion: No Pulmonary Disease (Asthma, TB): No Breast Disease: No Hypertension: No Occupational Medicine Officer Surgery: No Heart Disease: No Hosp/Surgery: No Autoimmune Disorder: No Anesthetic Complications: No Kidney Disease: No Abnormal Pap Smear: No Neuro/Epilepsy: No Psychiatric Disorders: No Other Medical Diseases: No Hepatitis/Liver Disease: No Significant Family History: No Varicosities/Phlebitis: No Trauma/Violence : No Thyroid Dysfunction: No INFECTIOUS HISTORY Gonorrhea: No Genital Herpes: No Chlamydia: No Tuberculosis: No Syphilis: No Hepatitis: No HIV/AIDS Exposure: No Rash or Viral Illness: No HPV: No PHYSICAL EXAM General: Normal HEENT: Normal Neurologic: Normal Thyroid: Normal Heart: Normal Lungs: Normal Breast: Normal Back: Normal Abdomen: Normal Genitourinary Exam: Normal Extremities: Normal DTRs: Normal Pelvic Type: Adequate Vital Signs: Reviewed FETUS A EGA: 40.2 Admit Comment: Delivered at home, doing well. INFORMED CONSENT Signature: with User ID: [email or web address]
[2020-02-13 08:33] LABS: ABSOLUTE LYMPHOCYTES (AUTO) 1.4 10^3/uL (0.5-4.7); ABSOLUTE MONOCYTES (AUTO) 0.9 10^3/uL (0.1-1.4); ABSOLUTE NEUT (AUTO) 13.4 10^3/uL (1.7-8.2); BASOPHILS % (AUTO) 0.2 % (0-2); EOSINOPHILS % (AUTO) 0.1 % (0-6); HEMATOCRIT 32.5 % (36.0-47.0); HEMOGLOBIN 11.2 g/dL (12.0-15.5); LYMPHOCYTES % (AUTO) 8.8 % (13-45); MEAN CORPUSCULAR HEMOGLOBIN 31.1 pg (27.0-33.4); MEAN CORPUSCULAR HGB CONC 34.6 g/dL (32.0-36.0); MEAN CORPUSCULAR VOLUME 90 fl (80-97); MONOCYTES % (AUTO) 5.8 % (3-13); PLATELET COUNT 236 10^3/uL (150-450); RED BLOOD COUNT 3.62 10^6/uL (3.72-5.28); SEGMENTED NEUTROPHILS % (AUTO) 85.1 % (42-78); TOTAL CELLS COUNTED % (AUTO) 100 %; WHITE BLOOD COUNT 15.8 10^3/uL (4.0-10.5)
[2020-02-13] MEDS ORDERED: IBUPROFEN 800 MG TABLET ONE (08:37)
[2020-02-13] MEDS ORDERED: IBUPROFEN 800 MG TABLET PO ONE (08:38)
--- NOTE | 2020-02-13 09:09 | Birth Certificate Data ---
Cert Data Datetime Report Generated by JEANETTE: 02/13/2020 09:09 CERTIFICATE DATA 47a. Care: Yes (01/10/2020 17:43:Jolanta Hernandez RN) 47b. Date of First Visit: 06/23/2019 00:00 (01/10/2020 17:43:Jolanta Hernandez RN) 47c. Date of Last Visit: 02/12/2020 00:00 (01/10/2020 17:43:Jolanta Hernandez RN) 47d. Number of Visits: 9 (Annotations: Data stored by JEANETTE on behalf of user) (01/10/2020 17:43:Jolanta Hernandez RN) 48a. Number of Prev Live Births: 2 (01/10/2020 17:43:Jolanta Hernandez RN) 48b. Now Livin (01/10/2020 17:43:Griselda Boyer RN) 48c. Live Births Now : 0 (01/10/2020 17:43:QS system process) 48d. Date of Last Live : 09/27/2017 00:00 (01/10/2020 17:43:Jolanta Hernandez RN) 48e. Losses: 0 (01/10/2020 17:43:Jolanta Hernandez RN) RISK FACTORS IN THIS 49a. Diabetes: No (01/10/2020 17:43:Jolanta Hernandez RN) 49b. Hypertension: No (01/10/2020 17:43:Jolanta Hernandez RN) 49c. Previous Births: 0 (01/10/2020 17:43:Sherie Izquierdo RN) 49d. Stillborns: No (01/10/2020 17:43:Jolanta Hernandez RN) 49d. IUGR: No (01/10/2020 17:43:Jolanta Hernandez RN) 49e. Infertility Treatment: No (01/10/2020 17:43:Jolanta Hernandez RN) 49f. Previous Cesareans: 1 (01/10/2020 17:43:Griselda Boyer RN) Mother's Height 50b. Height Inches: 59 (02/13/2020 08:21:QS system process) Mother's Weight 51a. Pre- Weight (lbs): 115 (01/10/2020 17:43:Jolanta Hernandez RN) 51b. Weight at Delivery (lbs): 139 (02/08/2020 15:20:QS system process) 52. Dt Last Normal Menses Began: 04/27/2019 00:00 (01/10/2020 17:43:Jolanta Hernandez RN) Infections Present/Treated 53a. Gonorrhea: No (01/10/2020 17:43:Jolanta Hernandez RN) Results this Hospital Visit : Negative (01/10/2020 17:43:Jolanta Hernandez RN) 53b. Syphilis: No (01/10/2020 17:43:Jolanta Hernandez RN) 53c. Chlamydia: No (01/10/2020 17:43:Jolanta Hernandez RN) Results this Hospital Visit: Negative (01/10/2020 17:43:Jolanta Hernandez RN) 53d. Hepatitis B: No (01/10/2020 17:43:Jolanta Hernandez RN) Results this Hospital Visit: Negative (01/10/2020 17:43:Jolanta Hernandez RN) 53e. Hepatitis C: Negative (01/10/2020 17:43:Jolanta Hernandez RN) 53h. Mother Tested for HBsAG: Yes (01/10/2020 17:43:Jolanta Hernandez RN) 53i. Date Tested: 06/23/2019 00:00 (01/10/2020 17:43:Jolanta Hernandez RN) 53j. Test Result: Negative (01/10/2020 17:43:Jolanta Hernandez RN) Obstetric Procedures 54a, b, c. Obstetric Procedures: Ultrasound; NST (01/10/2020 17:43:Jolanta Hernandez RN) Cigarette Smoking Cigarette Smoking: Former Smoker. [id number] (01/10/2020 17:43:Jolanta Hernandez RN) 55a. 3 Months Before Preg - Ci (01/10/2020 17:43:Jolanta Hernandez RN) 55a. Packs: 0 (01/10/2020 17:43:Jolanta Hernandez RN) 55b. 1st Trimester of Preg- Ci (01/10/2020 17:43:Jolanta Hernandez RN) 55b. Packs: 0 (01/10/2020 17:43:Jolanta Hernandez RN) 55c. 2nd Trimester of Preg- Ci (01/10/2020 17:43:Jolanta Hernandez RN) 55c. Packs: 0 (01/10/2020 17:43:Jolanta Hernandez RN) 55d. 3rd Trimester of Preg- Ci (01/10/2020 17:43:Jolanta Hernandez RN) 55d. Packs: 0 (01/10/2020 17:43:Jolanta Hernandez RN) Onset of Labor 56a. PROM >12 Hrs: 0.23 (01/10/2020 17:43:QS system process) 56b. Precipitous Labor <3 Hrs: 2 (01/10/2020 17:43:QS system process) 56c. Prolonged Labor > 20 Hrs: 2 (01/10/2020 17:43:QS system process) 57a. Induction of Labor: N/A (01/10/2020 17:43:Jolanta Hernandez RN) 57c. Non-Vertex Presentation A: Vertex (01/10/2020 17:43:Jolanta Hernandez RN) 57d. Steroids - Lung Mat: None (01/10/2020 17:43:Jolanta Hernandez RN) 57d. Steroids - Lung Mat: Not Applicable (01/10/2020 17:43:Jolanta Hernandez RN) 57g. Moderate/Heavy Meconium: Clear (01/10/2020 17:43:Jolanta Hernandez RN) 57h. Intolerance of Labor: N/A (01/10/2020 17:43:Jolanta Hernandez RN) : N/A (01/10/2020 17:43:Jolanta Hernandez RN) 57i. Epidural/Spinal Anesthesia: None (01/10/2020 17:43:Jolanta Hernandez RN) Method of Delivery 58a. Forceps - Unsuccessful A: N/A (01/10/2020 17:43:Jolanta Hernandez RN) 58b. Vacuum - Unsuccessful A: N/A (01/10/2020 17:43:Jolanta Hernandez RN) 58c. Presentation at 58c. Presentation at - A : Vertex (01/10/2020 17:43:Jolanta Hernandez RN) 58c. Presentation at - A : N/A (01/10/2020 17:43:Jolanta Hernandez RN) 58c. Presentation at - A : Cephalic (02/08/2020 15:04:Jolanta Hernandez RN) Final Route and Method of Del 58d. Baby A Route/Delivery: Vaginal (01/10/2020 17:43:[place] Schultz) 58e. Trial of Labor Attempted: Yes (01/10/2020 17:43:Jolanta Hernandez RN) 58e. Trial of Labor Attempted A: Successful (01/10/2020 17:43:Jolanta Hernandez RN) 58e. Trial of Labor Attempted B: N/A (01/10/2020 17:43:Jolanta Hernandez RN) Maternal Morbidity 59b. 3rd or 4th Degree Lacs: None (01/10/2020 17:43:Jolanta Hernandez RN) Birthweight Baby A: 3144 (01/10/2020 17:43:Jolanta Hernandez RN) 60a. Pounds : 6 (01/10/2020 17:43:QS system process) 60b. Ounces: 15 (01/10/2020 17:43:QS system process) 61. GA at Delivery Baby A: 40.2 (01/10/2020 17:43:Jolanta Hernandez RN) : Full Term- 39- 40.6 Weeks (01/10/2020 17:43:QS system process) 62a. 5 Minute Baby A: 10 (01/10/2020 17:43:QS system process) 62b. 10 Minute Baby A: 10 (01/10/2020 17:43:QS system process)
--- NOTE | 2020-02-13 09:09 | Delivery Summary ---
Del Sum A-C Datetime Report Generated by CPN: 02/13/2020 09:09 DELIVERY PERSONNEL DELIVERY PERSONNEL: [id number] MATERNAL INFORMATION Delivery Anesthesia: None Medications After Delivery: Pitocin 30 Units in 500ml NS/D5W Maternal Complications: Precipitous Labor (<3hrs) Complication Details: Pt delivered at home with paramedics present. Paramedics assigned apgars. LABOR SUMMARY EDC: 02/11/2020 00:00 No. Babies in Womb: 1 Attempted: Yes Labor Anesthesia: None LABOR INFORMATION Reason for Induction: Not Applicable Onset of Labor: 02/13/2020 03:30 Oxytocin: N/A Group B Beta Strep: Negative Antibiotics # of Doses: 0 Name of Antibiotic Given: N/A Steroids Given: None Reason Steroids Not Administered: Not Applicable MEMBRANES Membranes Rupture Method: Spontaneous Rupture of Membranes: 02/13/2020 05:35 Length of Rupture (hr): 0.23 Amniotic Fluid Color: Clear Amniotic Fluid Amount: Small Amniotic Fluid Odor: Normal STAGES OF LABOR Stage 3 hr: 0 Stage 3 min: 16 Total Time in Labor hr: 2 Total Time in Labor min: 35 VAGINAL DELIVERY Episiotomy: None Laceration #1: None Laceration Extension #1: N/A Laceration Repair: Not Applicable Sponge Count Correct: N/A Sharps Count Correct: N/A CSECTION DELIVERY Primary Indication: N/A Secondary Indication: N/A CSection Incidence: N/A Labor: N/A Elective: N/A CSection Incision: N/A BABY A INFORMATION Infant Delivery Date/Time: 02/13/2020 05:49 Method of Delivery: Vaginal Nurse Controlled Delivery: No Born in Route : Yes : Successful Forceps: N/A Vacuum Extraction: N/A Shoulder Dystocia : No PRESENTATION/POSITION BABY A Presentation: Cephalic Cephalic Presentation: Vertex Breech Presentation: N/A PLACENTA INFORMATION BABY A Placenta Delivery Time : 02/13/2020 06:05 Placenta Method of Delivery: Spontaneous Placenta Status: Delivered SCORES BABY A Heart Rate 1 min: >100 bpm Resp Effort 1 min: Good Cry Reflex Irritability 1 min: Cough or Sneeze or Pulls Away Muscle Tone 1 min: Active Motion Color 1 min: Body [place], Extremities Blue SCORE 1 MIN: 9 Heart Rate 5 min: >100 bpm Resp Effort 5 min: Good Cry Reflex Irritability 5 min: Cough or Sneeze or Pulls Away Muscle Tone 5 min: Active Motion Color 5 min: Completely [place] SCORE 5 MIN: 10 Heart Rate 10 min: >100 bpm Resp Effort 10 min: Good Cry Reflex Irritability 10 min: Cough or Sneeze or Pulls Away Muscle Tone 10 min: Active Motion Color 10 min: Completely [place] SCORE 10 MIN: 10 INFANT INFORMATION BABY A Gestational Age at Delivery: 40.2 Gestational Status: Full Term- 39- 40.6 Weeks Outcome : Liveborn Infant Condition : Stable Sex: Female IDENTIFICATION BABY A Infant Verification Date/Time: 02/13/2020 07:02 ID Band Number: [id number] Mother's Name Verified: Yes Infant RN Verifying : D Jaylen US/ D [place] RN WEIGHT/LENGTH BABY A Infant Birthweight (gm): 3144 Infant Weight (lb): 6 Infant Weight (oz): 15 Infant Length (in): 19.00 Infant Length (cm): 48.26 CORD INFORMATION BABY A No. Cord Vessels: 3 [place]uch[place] Cord : N/A Cord Blood Taken: N/A Infant Suction: Mouth; Nose ASSESSMENT BABY A Infant Complications: None Physical Findings at Delivery: Within Normal Limits Respirations: Appears Normal Skin to Skin: Yes Skin to Skin Time (min): 45 BABY B INFORMATION : N/A
[2020-02-13] MEDS ORDERED: PRENATAL VITAMIN W DHA CAPSULE PO ONE (09:15)
[2020-02-13] MEDS ORDERED: SENNOSIDES/DOCUSATE 8.6-50 MG 1 EACH TABLET ONE (09:16)
[2020-02-13] MEDS ORDERED: FERROUS SULFATE 325 MG TABLET PO ONE (09:16)
[2020-02-13] MEDS ORDERED: FAMOTIDINE 20 MG TABLET ONE (09:16)
[2020-02-13] MEDS ORDERED: DOCUSATE SODIUM 100 MG CAPSULE ONE (09:16)
[2020-02-13] MEDS: FERROUS SULFATE 325 MG TABLET PO SCH ×2 (09:18→17:24)
[2020-02-13] MEDS: SENNOSIDES/DOCUSATE 8.6-50 MG 1 EACH TABLET PO SCH (09:18)
[2020-02-13] MEDS: FAMOTIDINE 20 MG TABLET PO SCH ×2 (09:18→21:28)
[2020-02-13] MEDS: PRENATAL VITAMIN W DHA CAPSULE PO SCH (09:18)
[2020-02-13] MEDS: DOCUSATE SODIUM 100 MG CAPSULE PO SCH ×2 (09:18→17:24)
[2020-02-13 13:25] LABS: URINE AMPHETAMINES SCREEN NEGATIVE; URINE BARBITURATES SCREEN NEGATIVE; URINE BENZODIAZEPINES SCREEN NEGATIVE; URINE COCAINE SCREEN NEGATIVE; URINE MARIJUANA (THC) SCREEN NEGATIVE; URINE METHADONE SCREEN NEGATIVE; URINE PHENCYCLIDINE SCREEN NEGATIVE
[2020-02-13] MEDS: IBUPROFEN 800 MG TABLET PO SCH ×2 (13:50→21:28)
[2020-02-14] MEDS: IBUPROFEN 800 MG TABLET PO SCH ×2 (05:14→13:44)
[2020-02-14 06:52] LABS: HEMATOCRIT 32.8 % (36.0-47.0); HEMOGLOBIN 11.4 g/dL (12.0-15.5); MEAN CORPUSCULAR HEMOGLOBIN 31.4 pg (27.0-33.4); MEAN CORPUSCULAR HGB CONC 34.6 g/dL (32.0-36.0); MEAN CORPUSCULAR VOLUME 91 fl (80-97); PLATELET COUNT 234 10^3/uL (150-450); RED BLOOD COUNT 3.61 10^6/uL (3.72-5.28); RED CELL DISTRIBUTION WIDTH 13.3 % (11.5-14.0); WHITE BLOOD COUNT 11.4 10^3/uL (4.0-10.5)
[2020-02-14 07:53] VITALS: BP 115/66
[2020-02-14] MEDS: PRENATAL VITAMIN W DHA CAPSULE PO SCH (10:29)
[2020-02-14] MEDS: FAMOTIDINE 20 MG TABLET PO SCH (10:29)
[2020-02-14] MEDS: FERROUS SULFATE 325 MG TABLET PO SCH (10:33)
[2020-02-14] MEDS: DOCUSATE SODIUM 100 MG CAPSULE PO SCH (10:33)
[2020-02-14] MEDS: SENNOSIDES/DOCUSATE 8.6-50 MG 1 EACH TABLET PO SCH (10:34)
--- NOTE | 2020-02-14 12:22 | PDOC PROGRESS REPORT ---
Subjective-OB Progress Note for:: 02/14/20 Subjective: 29yo s/p ppd1 ambulating and voiding without difficulty. Reports pain well controlled by medication, denies any concerns. Desires early discharge- pending baby's Bili levels tonight Physical Exam (OB) Vital Signs: Temp Pulse Resp BP Pulse Ox 97.9 F 52 L 16 115/66 100 02/14/20 10:00 02/14/20 07:52 02/14/20 07:52 02/14/20 07:52 02/14/20 07:52 Intake & Output 02/13/20 02/14/20 02/15/20 06:59 06:59 06:59 Intake Total 1280 340 Balance 1280 340 Weight 63 kg - General General Appearance: Appears well In distress: None - PIH/Pre-Eclampsia DTR's: 1 + Clonus: Negative Headache: Absent Epigastric Pain: No Visual Changes: No - Maternal Morbidity 59. Maternal Morbidity (serious complications experinced by the mother associated with labor and delivery: None of the above - Episiotomy/Laceration Site Condition: N/A - Lochia Lochia Amount: Scant < 10 ml Lochia Color: Rubra/Red - Abdomen Description: Soft Hernia Present: No Fundal Description: Firm Fundal Height: u/u - u/2 - Respiratory Respiratory Status: No respiratory distress - Extremities Upper extremity: Normal inspection Lower extremities: Normal inspection - Neurological Cognition: Normal Orientation: AAOx4 - Psychological Associated symptoms: Normal affect, Normal mood Objective-Diagnostic Laboratory: 02/14/20 06:37 02/14/20 06:37 WBC 11.4 H RBC 3.61 L Hgb 11.4 L Hct 32.8 L MCV 91 MCH 31.4 MCHC 34.6 RDW 13.3 Plt Count 234 Assessment and Plan(PN) - Assessment and Plan (1) Encounter for care after unplanned out of hospital delivery Is this a current diagnosis for this admission?: Yes Plan: routine pp care (2) Meconium passage during delivery Is this a current diagnosis for this admission?: Yes Plan: delivered (3) Seizures, generalized convulsive Is this a current diagnosis for this admission?: Yes Plan: hx of seizures, precautions in place (4) Vaginal after , delivered, current hospitalization Is this a current diagnosis for this admission?: Yes Plan: routine pp care - Time Spent with Patient Time with patient: Less than 15 minutes Medications reviewed and adjusted accordingly: Yes - Disposition Anticipated Discharge Disposition: Home, Self Care Anticipated Discharge Timeframe: within 24 hours
--- NOTE | 2020-02-14 17:06 | PDOC DISCHARGE SUMMARY ---
Impression - Admit/DC Date/PCP Admission Date/Primary Care Provider: 02/13/20 06:44 Discharge Date: 02/14/20 - Discharge Diagnosis (1) Encounter for care after unplanned out of hospital delivery Is this a current diagnosis for this admission?: Yes (2) Meconium passage during delivery Is this a current diagnosis for this admission?: Yes (3) Seizures, generalized convulsive Is this a current diagnosis for this admission?: Yes (4) Vaginal after , delivered, current hospitalization Is this a current diagnosis for this admission?: Yes - Assessment Summary: 29yo s/p ppd1- desires early discharge-stable and ready for discharge, understands warning s/s and when to rtc/[facility] - Additional Information Discharge Diet: As Tolerated, Regular Discharge Activity: Activity As Tolerated, Balance Activity w/Rest, No Lifting Over 10 Pounds, No Lifting/Push/Pulling, Pelvic Rest, No tub bath, Walk Frequently Prescriptions: Ibuprofen [Motrin 800 mg Tablet] 800 mg PO Q8HP PRN #20 tablet PRN Reason: For Pain Scale 1-3 Home Medications: Vit Calc,Iron,Folic [ Vitamins] 1 tab PO DAILY 07/30/17 Folic Acid 1 mg PO DAILY 01/10/20 [place]-3/Dha/Epa/Fish Oil [Fish Oil 1,000 mg Softgel] 1 each PO DAILY 01/10/20 Ibuprofen [Motrin 800 mg Tablet] 800 mg PO Q8HP PRN #20 tablet 02/14/20 Hospital Course 59. Maternal Morbidity (serious complications experinced by the mother associated with labor and delivery: None of the above Results Laboratory Results: WBC 11.4 10^3/uL (4.0-10.5) H 02/14/20 06:37 RBC 3.61 10^6/uL (3.72-5.28) L 02/14/20 06:37 Hgb 11.4 g/dL (12.0-15.5) L 02/14/20 06:37 Hct 32.8 % (36.0-47.0) L 02/14/20 06:37 MCV 91 fl (80-97) 02/14/20 06:37 MCH 31.4 pg (27.0-33.4) 02/14/20 06:37 MCHC 34.6 g/dL (32.0-36.0) 02/14/20 06:37 RDW 13.3 % (11.5-14.0) 02/14/20 06:37 Plt Count 234 10^3/uL (150-450) 02/14/20 06:37 Lymph % (Auto) 8.8 % (13-45) L 02/13/20 08:16 Coffee % (Auto) 5.8 % (3-13) 02/13/20 08:16 Eos % (Auto) 0.1 % (0-6) 02/13/20 08:16 Baso % (Auto) 0.2 % (0-2) 02/13/20 08:16 Absolute Neuts (auto) 13.4 10^3/uL (1.7-8.2) H 02/13/20 08:16 Absolute Lymphs (auto) 1.4 10^3/uL (0.5-4.7) 02/13/20 08:16 Absolute Monos (auto) 0.9 10^3/uL (0.1-1.4) 02/13/20 08:16 Absolute Eos (auto) 0.0 10^3/uL (0.0-0.6) 02/13/20 08:16 Absolute Basos (auto) 0.0 10^3/uL (0.0-0.2) 02/13/20 08:16 Seg Neutrophils % 85.1 % (42-78) H 02/13/20 08:16 Urine Opiates Screen NEGATIVE 02/13/20 12:20 Urine Methadone Screen NEGATIVE 02/13/20 12:20 Ur Barbiturates Screen NEGATIVE 02/13/20 12:20 Ur Phencyclidine Scrn NEGATIVE 02/13/20 12:20 Ur Amphetamines Screen NEGATIVE 02/13/20 12:20 U Benzodiazepines Scrn NEGATIVE 02/13/20 12:20 Urine Cocaine Screen NEGATIVE 02/13/20 12:20 U Marijuana (THC) Screen NEGATIVE 02/13/20 12:20 RPR NONREACTIVE (NONREACTIVE) 02/13/20 08:16 Blood Type O POSITIVE 02/13/20 08:16 Antibody Screen NEGATIVE 02/13/20 08:16
== END 2020-02-14 18:25 | disposition home or self-care (01) | DRG 776 ==
LOC: LR 06:44 → 2S 10:50
PROVIDERS: ADMIT Obstetrics & Gynecology; ATTEND Obstetrics & Gynecology
DX: Z39.0 Encounter for care and examination of mother immediately after delivery (principal); O99.355 Diseases of the nervous system complicating the puerperium; G40.909 Epilepsy, unspecified, not intractable, without status epilepticus; O99.345 Other mental disorders complicating the puerperium; F41.8 Other specified anxiety disorders; O34.211 Maternal care for low transverse scar from previous cesarean delivery; N85.8 Other specified noninflammatory disorders of uterus; Z3A.40 40 weeks gestation of pregnancy
CPT/HCPCS: 36415; 80307; 85025; 85027; 86592; 86850; 86900; 86901; 94760; J2590; J3490